=== PATIENT | male | born 1955 | race Two or more races ===

== ENCOUNTER 2025-01-07 14:00 | Outpatient (CLI) | payer MEDICARE, BC ==
[2025-01-09] MEDS ORDERED: ADENOSINE 90 MG/30 ML INJ IV ONE (10:30)
== END 2025-01-07 17:00 | disposition home or self-care (01) ==
LOC: Rad HDHVI 14:00
PROVIDERS: ATTEND Internal Medicine Cardiovascular Disease
DX: I10 Essential (primary) hypertension (principal); E78.5 Hyperlipidemia, unspecified
CPT/HCPCS: 93306

== ENCOUNTER 2025-01-09 09:35 | Outpatient (CLI) | payer MEDICARE, BC ==
[~2025-01-09] VITALS: Ht 182.9 cm; Wt 78.5 kg
[2025-01-09] MEDS ORDERED: ADENOSINE 66 MG in GIVE UN-DILUTED 0 ML IV ONE ×2 (10:15→13:45)
[2025-01-09] MEDS ORDERED: ADENOSINE 90 MG/30 ML INJ IV ONE (13:42)
== END 2025-01-12 17:00 | disposition home or self-care (01) ==
LOC: Rad HDHVI 09:35
PROVIDERS: ATTEND Internal Medicine Cardiovascular Disease
DX: Z01.810 Encounter for preprocedural cardiovascular examination (principal); I25.10 Atherosclerotic heart disease of native coronary artery without angina pectoris; I10 Essential (primary) hypertension; E11.65 Type 2 diabetes mellitus with hyperglycemia; E78.5 Hyperlipidemia, unspecified; F43.9 Reaction to severe stress, unspecified; Z86.73 Personal history of transient ischemic attack (TIA), and cerebral infarction without residual deficits
CPT/HCPCS: 78452; 93017; A9500; J0153

== ENCOUNTER 2025-01-14 12:39 | Outpatient (CLI) | payer MEDICARE, BC | END 2025-01-14 17:00 | disposition home or self-care (01) | LOC: Rad HDHVI 12:39 | PROVIDERS: ATTEND Internal Medicine Cardiovascular Disease | DX: I10 Essential (primary) hypertension (principal); Z86.73 Personal history of transient ischemic attack (TIA), and cerebral infarction without residual deficits | CPT/HCPCS: 93880 ==